=== PATIENT | male | born 2000 | race Caucasian/White ===

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

== ENCOUNTER 2019-11-07 13:01 | Emergency (ER) | payer OTHER ==
[~2019-11-07] VITALS: Ht 177.8 cm; Wt 110.3 kg
[~2019-11-07 13:01] MED LIST changes: -BUPIVACAINE HCL 0.5% 10 ML VIAL As Ordered ONE
[2019-11-07] MEDS ORDERED: BOOSTRIX/ADACEL VACCINE (DIPHTH/PERTUSS/ACELL/TETANUS) 0.5ML SYR IM ONE (14:15)
[2019-11-07] MEDS ORDERED: CLEO300C2 PO (14:22)
[2019-11-07] MEDS ORDERED: CLINDAMYCIN 150MG CAPSULE PO ONE (14:30)
[2019-11-07 14:45] VITALS: BP 143/91
== END 2019-11-07 14:50 | disposition short-term general hospital (02) ==
LOC: M ED 13:01
DX: S01.551A Open bite of lip, initial encounter (principal); W54.0XXA Bitten by dog, initial encounter; Y92.9 Unspecified place or not applicable; Y93.9 Activity, unspecified; Y99.9 Unspecified external cause status; Z88.0 Allergy status to penicillin; Z88.2 Allergy status to sulfonamides